=== PATIENT | male | born 1945 | race Asian ===

== ENCOUNTER 2018-12-31 07:49 | Day surgery (SDC) | payer BC ==
[~2018-12-31 07:49] MED LIST: SOD CHLORIDE 0.45% 1,000 ML IV
[2018-12-31 08:50] LABS: ADD MAN DIFF? NO
[2018-12-31 08:52] LABS: WHITE BLOOD COUNT 5.8 10^3/ul (4.8-10.8)
[2018-12-31 08:52] LABS: BASOPHILS % 0.7 % (0.0-2.0); EOSINOPHILS # 0.3 10^3/ul (0.0-0.5); EOSINOPHILS % 4.5 % (0.0-7.0); HEMATOCRIT 46.2 % (42.0-52.0); HEMOGLOBIN 15.5 g/dl (14.0-18.0); LYMPHOCYTES # 1.9 10^3/ul (0.8-2.9); LYMPHOCYTES % 31.8 % (15.0-51.0); MEAN CORPUSCULAR HEMOGLOBIN 29.5 pg (29.0-33.0); MEAN CORPUSCULAR HGB CONC 33.5 g/dl (32.0-37.0); MEAN PLATELET VOLUME 10.3 fl (7.4-10.4); MONOCYTE # 0.5 10^3/ul (0.3-0.9); MONOCYTES % 8.8 % (0.0-11.0); NEUTROPHIL # 3.1 10^3/ul (1.6-7.5); NEUTROPHILS % 53.9 % (39.0-77.0); PLATELET COUNT 194 10^3/UL (140-415); RED BLOOD COUNT 5.25 10^6/ul (4.70-6.10); RED CELL DISTRIBUTION WIDTH 12.9 % (11.5-14.5)
[2018-12-31] MEDS ORDERED: LIDOCAINE 1% (MDV) 20 ML INJ (08:56)
[2018-12-31] MEDS ORDERED: HEPARIN 1000 UNITS/NS (A-LINE) 1,000 ML (08:56)
[2018-12-31] MEDS ORDERED: MIDAZOLAM 1 MG/ML 2 ML INJ (08:56)
[2018-12-31] MEDS ORDERED: FENTAnyl 50 MCG/ML VIAL (08:57)
[2018-12-31] MEDS: DIPHENHYDRAMINE 50 MG CAP PO (08:58)
[2018-12-31] MEDS: FAMOTIDINE 20 MG TAB PO (08:59)
[2018-12-31] MEDS: DIAZEPAM 5 MG TAB PO (08:59)
[2018-12-31 09:12] LABS: INR 1.09; PROTIME 14.2 Sec (11.9-14.9); PT RATIO 1.1
[2018-12-31 09:14] LABS: ANION GAP 9 (5-13); CALCIUM 9.6 mg/dl (8.4-10.2); CARBON DIOXIDE 24 mmol/L (21-31); CHLORIDE 102 mmol/L (97-110); CHOLESTEROL 125 mg/dl (100-200); GLUCOSE 171 mg/dl (70-220); SODIUM 135 mmol/L (135-144); TRIGLYCERIDES 179 mg/dl (0-149)
[2018-12-31 09:17] LABS: CREATININE 1.47 mg/dl (0.61-1.24); POTASSIUM 5.3 mmol/L (3.5-5.1)
[2018-12-31 09:19] LABS: PARTIAL THROMBOPLASTIN TIME 39.7 Sec (23.0-35.0)
[2018-12-31 09:37] LABS: BLOOD UREA NITROGEN 32 mg/dl (7-20)
== END 2018-12-31 10:40 | disposition home or self-care (01) ==
LOC: SDS 07:49
DX: I48.91 Unspecified atrial fibrillation (principal); Z53.8 Procedure and treatment not carried out for other reasons; I10 Essential (primary) hypertension; E11.9 Type 2 diabetes mellitus without complications; E78.00 Pure hypercholesterolemia, unspecified
CPT/HCPCS: 71045; 80048; 82465; 82962; 84478; 85025; 85610; 85730; 93005